=== PATIENT | female | born 1940 | race Two or more races ===

== ENCOUNTER 2025-02-20 07:00 | Day surgery (SDC) | payer OTHER ==
[2025-02-20] MEDS ORDERED: fentaNYL CITRATE 50 MCG/ML AMPUL IV PUSH ONE (10:30)
[2025-02-20] MEDS ORDERED: DIPHENHYDRAMINE HCL 50 MG/ML VIAL 1ML IV ONE (10:30)
[2025-02-20] MEDS ORDERED: MIDAZOLAM HCL 2 MG/2 ML VIAL IV ONE (10:30)
== END 2025-02-20 11:50 | disposition home or self-care (01) ==
LOC: AMB-ENDOS 07:00 → ADM 07:45 → AMB-ENDOS 07:45
PROVIDERS: ATTEND Colon & Rectal Surgery
DX: R19.4 Change in bowel habit (principal); K64.0 First degree hemorrhoids; K92.1 Melena